=== PATIENT | female | born 1980 | race Hispanic/Latino ===

== ENCOUNTER 2018-07-05 06:55 | Day surgery (SDC) | payer OTHER ==
[2018-07-04 17:49] VITALS: BP 124/71
[2018-07-04 17:54] LABS: BASOPHILS % (AUTO) 0.5 % (0.0-5.0); EOSINOPHILS % (AUTO) 4.9 % (0.0-8.0); HEMATOCRIT 40.6 % (36-48); MEAN CORPUSCULAR HEMOGLOBIN 29.6 pg (27.0-33.0); MEAN CORPUSCULAR HGB CONC 32.9 g/dL (32.0-36.0); MEAN CORPUSCULAR VOLUME 90.2 fL (79-99); MONOCYTES % (AUTO) 8.7 % (3.0-13.0); NEUTROPHILS % (AUTO) 52.9 % (40.0-77.0); PLATELET COUNT (AUTO) 304 K/uL (130-400); RED CELL DISTRIBUTION WIDTH 12.6 % (11.0-15.5); WHITE BLOOD COUNT (AUTO) 6.9 K/uL (4.8-10.8)
[~2018-07-05] VITALS: Ht 165.1 cm; Wt 98.4 kg
[2018-07-05] VITALS (16 sets, daily range): BP systolic 111–145; BP diastolic 63–88
[~2018-07-05 06:55] MED LIST: FOLI1TAB15 PO; PREN-154 PO
[2018-07-05] MEDS ORDERED: LACTATED RINGERS 1000ML 1,000 ML IV SCH (07:15)
[2018-07-05] MEDS ORDERED: BUPIVACAINE/PF 0.25% 30ML VIAL IJ ONE (07:59)
[2018-07-05] MEDS ORDERED: ONDANSETRON HCL 4 MG/2 ML VIAL ONE ×2 (08:10→08:46)
[2018-07-05] MEDS ORDERED: DEXAMETHASONE SOD PHOSPHATE 10MG/ML 1ML VIAL ONE ×2 (08:10→08:46)
[2018-07-05] MEDS ORDERED: LIDOCAINE PF 2% 5ML ABBOJECT ONE ×2 (08:10→08:11)
[2018-07-05] MEDS ORDERED: MIDAZOLAM HCL 1 MG/ML 2ML VIAL ONE ×3 (08:11→09:41)
[2018-07-05] MEDS ORDERED: PROPOFOL 10 MG/ML 20ML VIAL IV ONE (08:11)
[2018-07-05] MEDS ORDERED: ROCURONIUM 10MG/1ML SYR 10 MG/ML ML ONE (08:11)
[2018-07-05] MEDS ORDERED: NEOSTIGMINE 5MG/5ML SYR IV ONE ×2 (08:11→09:39)
[2018-07-05] MEDS ORDERED: FENTANYL CITRATE PF 50 MCG/1 ML 2ML VIAL ONE ×2 (08:11→08:33)
[2018-07-05] MEDS ORDERED: GLYCOPYRROLATE 1 MG/5 ML SYRINGE ONE ×2 (08:11→09:20)
[2018-07-05] MEDS ORDERED: CALDOLOR 800MG+NS 250ML 250 ML IV ONE (08:53)
[2018-07-05] MEDS ORDERED: MEPERIDINE-PF 25 MG/ML SYG ONE (10:13)
== END 2018-07-05 11:25 | disposition home or self-care (01) ==
LOC: DAH 06:55
DX: N80.2 Endometriosis of fallopian tube (principal); N80.0 Endometriosis of uterus; K42.9 Umbilical hernia without obstruction or gangrene; D25.9 Leiomyoma of uterus, unspecified
CPT/HCPCS: 36415; 58662; 84702; 85025; 86850; 86900; 86901; A4215; A4344; A4510; A4600; C1769 ×3; G0168; J1100 ×2; J1741; J2001 ×2; J2175; J2250 ×3; J2405 ×2; J2704; J2710 ×2; J3010 ×2; J3490 ×3; J7030; J7120